=== PATIENT | male | born 1950 | race American Indian/Alaskan Native ===

== ENCOUNTER 2017-06-21 07:19 | Emergency (ER) | payer MEDICARE, MEDICAID ==
[2017-06-21] MEDS ORDERED: Iodixanol 320 MG/ML 100 ML BOTTLE IV ONE (07:36)
[2017-06-21] MEDS ORDERED: Labetalol 25mg/5ml Syringe IVP STA (07:40)
[2017-06-21 07:41] LABS: BASO % 0.6 % (0.0-2.0); EOS % 1.1 % (0.0-4.0); HEMATOCRIT 42.4 % (35.0-51.0); LYMPH # 0.7 K/uL (1.0-4.3); LYMPH % 18.2 % (20.0-40.0); MEAN CORPUSCULAR HEMOGLOBIN 33.4 pg (27.0-31.0); MEAN CORPUSCULAR HGB CONC 33.8 g/dL (33.0-37.0); MONO # 0.4 K/uL (0.0-0.8); MONO % 9.1 % (0.0-10.0); NRBC % 0.1 % (0.0-2.0); RED CELL DISTRIBUTION WIDTH 12.6 % (11.5-14.5); WHITE BLOOD COUNT 4.1 K/uL (4.8-10.8)
[2017-06-21 07:47] LABS: ALB/GLOB RATIO 1.3 (1.0-2.1); ALKALINE PHOSPHATASE 112 U/L (38-126); ALT/SGPT 27 U/L (21-72); AST/SGOT 37 U/L (17-59); BILIRUBIN,TOTAL 1.2 mg/dL (0.2-1.3); BLOOD UREA NITROGEN 20 mg/dL (9-20); CALCIUM 9.1 mg/dl (8.6-10.4); CARBON DIOXIDE 23 mmol/L (22-30); CHLORIDE 103 mmol/L (98-107); CHOLESTEROL 221 mg/dL (0-199); GFR AFRICAN-AMERICAN > 60; GLUCOSE,RANDOM 374 mg/dL (75-110); POTASSIUM 4.2 mmol/L (3.6-5.2); SODIUM 134 mmol/L (132-148); TOTAL PROTEIN 7.1 g/dL (6.3-8.3)
--- NOTE | 2017-06-21 07:47 | C.PDOC ---
History Of Present Illness 66 year old male with is brought to the ED via ALS for evaluation of a wake up stroke, patient reports he went to sleep around midnight and woke up at 07:00. Patient reports he woke up and started to stumble and fall, he is currently c/o right sides weakness. Upon arrival patient presents with right sided hemiplegia , aphasia, facial droop, he was also hypertensive and hyperglycemic. Patient later denies any history of DM and HTN, but states he drinks and smokes. Code stroke was called and patient was sent up for a CT and CTA. Patient denies any prior history of CVA. Time Seen by Provider: 06/21/17 07:23 Chief Complaint (Nursing): Weakness/Neurological Deficit History Per: Patient, EMS Onset/Duration Of Symptoms: Hrs Current Symptoms Are (Timing): Still Present Activity At Onset Of Symptoms: Lying Seizure Or Post-ictal Symptoms: None Fall Associated With With Symptoms: No Severity: Mild Recent travel outside of the [place]: No Additional History Per: Patient, EMS - Symptoms Of CVA Associated Symptoms: Impaired Speech, Decreased Ability To Walk Character Of Deficits: Right: Weakness, Face: Weakness, Arm: Weakness, Leg: Weakness Recent Head Trauma: No Past Medical History Reviewed: Historical Data, Nursing Documentation, Vital Signs Vital Signs: Last Vital Signs Temp 97.7 F 06/21/17 08:25 Pulse 76 06/21/17 08:25 Resp 20 06/21/17 08:25 BP 176/74 H 06/21/17 08:25 Pulse Ox 99 06/21/17 08:37 - Medical History PMH: Diabetes, HTN Surgical History: No Surg Hx Family History: States: Unknown Family Hx - Social History Hx Alcohol Use: No Hx Substance Use: No Review Of Systems Constitutional: Positive for: Weakness Cardiovascular: Negative for: Chest Pain, Palpitations Respiratory: Negative for: Shortness of Breath Gastrointestinal: Negative for: Nausea, Vomiting, Abdominal Pain Neurological: Positive for: Weakness, Incoordination, Change in Speech. Negative for: Altered Mental Status, Headache, Dizziness Physical Exam - Physical Exam Appears: Non-toxic Skin: Normal Color, Warm, Dry Head: Normacephalic, Other (Right side facial droop) Nose: No Discharge Oral Mucosa: Moist Neck: Normal ROM, Supple Chest: Symmetrical Cardiovascular: Rhythm Regular, No Murmur Respiratory: Normal Breath Sounds, No Rales, No Rhonchi, No Wheezing Gastrointestinal/Abdominal: Soft, No Tenderness Extremity: Normal ROM (Left side), No Calf Tenderness, No Deformity, No Swelling Neurological/Psych: Oriented x3, No Normal Speech (Severe slurred speech), No Normal Motor (Right side upper extremities 4/5, right side lower 3/5), No Normal Sensation (right side ), Other (Left side motor and senstion normal) ED Course And Treatment - Laboratory Results Result Diagrams: 06/21/17 07:35 06/21/17 07:35 O2 Sat by Pulse Oximetry: 99 (On RA) Pulse Ox Interpretation: Normal NIHSS Stroke Scale - Date/Time Evaluation Performed Date Performed: 06/21/17 Time Performed: 07:25 When Was NIHSS Performed: Baseline - How Severe is the Stoke Level of Consciousness: 0=Alert LOC to Questions: 2=Neither correct LOC to commands: 0=Obeys both correctly Best Gaze: 0=Normal Visual: 0=No visual loss Facial: 2=Partial (lower face paralysis) Motor Arm - Left: 0=No drift Motor Arm - Right: 1=Drift noted before 10 sec Motor Leg - Left: 0=No drift Motor Leg - Right: 2=Falls before 5 sec Limb Ataxia: 0=Absent Sensory: 0=Normal Best Language: 1=Mild to moderate aphasia Dysarthia: 1=Mild to moderate slurring Extinction & Inattention (Neglect): 0=Normal, no object Score: 9 Severity Of Stroke: 5-15= Moderate Stroke rTPA Inclusion/Exclusion - Refusal of Treatment Patient Refused Treatment: No - Inclusion Criteria for Altepase Patient is 18 years or Older: No The Clinical Diagnosis of Ischemic Stroke That is Causing a Potentially Disabling Neurological Deficit: Yes Time of Onset is Well Established to be Less Than 270 Minute Before Treatment Would Begin: No - Exclusion Criteria for Altepase Known Bleeding Diathesis Including but Not Limited to: Platelets Below 100,000/ mm,PTT Above 40 sec After Heparin Use, Current Use of Oral Anitcoagulant With INR Greater Than 1.7 or PT Greater Than 15 secs: No Evidence of an Intracranial Hemorrhage: No Evidence of Major Acute Infarct With Signs Greater Than 1/3 MCA Territory: Yes Suspicion of Subarachnoid Hemorrhage on Pretreatment Evaluation Even if CT Head Negative For Hemorrhage: No - Warning to TPA With Conditions Following Conditions Weighed Against Anticipated Benefit: No Medical Decision Making Medical Decision Making: Impression : 66 y/o male with a wake up stroke Plan: * Blood work * CT angio head * CT head * EKG * CXR * Trandate [address] head - no ICB Contacted Dr. Sofia Pending CTA Spoke with Neuroradiology Patient for transfer to [place]. Neuro SUBASSEMBLY ASSEMBLER in the ED assisting with transfer. Disposition - Disposition Disposition Time: 08:56 Condition: CRITICAL - Clinical Impression Clinical Impression: Stroke - Scribe Statement The provider has reviewed the documentation as recorded by the Scribe Luis Bentley All medical record entries made by the Scribe were at my direction and personally dictated by me. I have reviewed the chart and agree that the record accurately reflects my personal performance of the history, physical exam, medical decision making, and the department course for this patient. I have also personally directed, reviewed, and agree with the discharge instructions and disposition.
[2017-06-21] MEDS ORDERED: Labetalol 25mg/5ml Syringe ONE (08:10)
--- NOTE | 2017-06-21 08:14 | CT ---
PROCEDURE: CT HEAD WITHOUT CONTRAST. HISTORY: Code Stroke COMPARISON: None available. TECHNIQUE: Axial computed tomography images were obtained through the head/brain without intravenous contrast. Radiation dose: Total exam DLP = 936.33 mGy-cm. This CT exam was performed using one or more of the following dose reduction techniques: Automated exposure control, adjustment of the mA and/or kV according to patient size, and/or use of iterative reconstruction technique. FINDINGS: HEMORRHAGE: No intracranial hemorrhage. BRAIN: No mass effect or edema. Cortical atrophy. 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 VENTRICLES: Unremarkable. No hydrocephalus. CALVARIUM: Unremarkable. PARANASAL SINUSES: Unremarkable as visualized. No significant inflammatory changes. MASTOID AIR CELLS: Unremarkable as visualized. No inflammatory changes. OTHER FINDINGS: None. IMPRESSION: No acute intracranial abnormalities. 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 No evidence of acute intracranial hemorrhage. Code stroke protocol: Study completed 07:45 Radiologist notified 08:07 Results conveyed verbally at 08:11 Interpretation finalized and available for review 08:12.
--- NOTE | 2017-06-21 08:46 | RAD ---
HISTORY: code stroke COMPARISON: History FINDINGS: LUNGS: No active pulmonary disease. PLEURA: No significant pleural effusion identified, no pneumothorax apparent. CARDIOVASCULAR: Normal. OSSEOUS STRUCTURES: Evidence of old healed fracture with removal of orthopedic hardware in the right humeral neck/ head. VISUALIZED UPPER ABDOMEN: Normal. OTHER FINDINGS: None. IMPRESSION: No active disease.
--- NOTE | 2017-06-21 08:50 | CT ---
PROCEDURE: CTA HEAD AND NECK WITH CONTRAST HISTORY: Stroke COMPARISON: Noncontrast head CT performed earlier the same day. TECHNIQUE: Initial noncontrast head CT was performed. Subsequently, CT angiogram of the head and neck were performed after the intravenous administration of 80 mL of Omnipaque 350. Contiguous 1.5mm thick images were obtained in the axial plane of the neck. 2-D coronal and sagittal MPR images were obtained. Imaging postprocessing was performed with 3-D images also obtained. A delayed contrast head CT was also obtained. This CT exam was performed using one or more of the following dose reduction techniques: Automated exposure control, adjustment of the mA and/or kV according to patient size, and/or use of iterative reconstruction technique. Contrast dose: 100 mL Visipaque Radiation dose: Total exam DLP = 553.38 mGy-cm. FINDINGS: HEAD: Right: The intracranial internal carotid artery, and anterior and middle cerebral arteries are widely patent. Left: There is segmental 7 mm occlusion of the proximal petrous segment of internal carotid artery. The remaining petrous segment is patent but asymmetrically narrow compared to the right. There is also asymmetric narrowing of the left intracranial internal carotid artery and middle cerebral artery and branches. The A1 segment is hypoplastic, an anatomic variant. The A2 segments are widely patent. Posterior circulation: The visualized intracranial vertebral arteries, basilar artery and posterior cerebral arteries are widely patent. There is no intracranial saccular aneurysm. There is no abnormal enhancement on the postcontrast CT. NECK: There is a three vessel aortic arch. There are atheromatous changes in the aortic arch. There is no stenosis at the origins of the great vessels at the level of the aortic arch. There is mild narrowing of both vertebral arteries at the origin. Right Carotid: On the right, the common carotid, internal carotid and external carotid arteries are widely patent. There is no hemodynamically significant stenosis in the internal carotid arteries. Left Carotid: There is complete occlusion of the extracranial internal carotid artery. On the left, the common carotid and external carotid arteries are widely patent. The vertebral arteries are widely patent. The left vertebral artery is dominant, an anatomic variant. IMPRESSION: 1. 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 2. Segmental occlusion of the proximal 7 mm of petrous segment of left intracranial internal carotid artery. 3. Asymmetric narrowing of the left distal petrous segment , cavernous carotid and supraclinoid internal carotid arteries, left middle cerebral artery and its branches. 3. No hemodynamically significant stenosis in the right internal carotid artery by NASCET criteria. 4. Patent vertebral arteries. Critical findings were discussed with Dr. Joanne Childers and Nolan Sofia on 06/21/2017 at 8:25 a.m.
[2017-06-21 09:12] VITALS: O2SAT 100
[2017-06-21 09:19] VITALS: PULSE 74; TEMP 98.1
[2017-06-21 09:27] VITALS: BP 170/76; RESP 14
--- NOTE | 2017-06-21 10:04 | CP.PCM.CON ---
History of Present Illness - History of Present Illness History of Present Illness: Mr. Freeman is a 66-year-old man with unknown past medical history, who presented with right side weakness, facial droop and difficulty with speech that he woke up with this morning. He was last normal last night. Initial NIHSS was 12. He was not a candidate for IV tPA due to being outside the 4.5 hour time window. CTA of the head/neck showed a complete occlusion of the left ICA with reconstitution in the intracranial portion, with good flow in the MCA. He was a candidate for thrombectomy and we initiated transfer to [place]. Past Patient History - Past Social History Smoking Status: Unknown If Ever Smoked - CARDIAC Hx Hypertension: Yes - ENDOCRINE/METABOLIC Hx Endocrine Disorders: Yes Hx Diabetes Mellitus Type 2: Yes - PSYCHIATRIC Hx Substance Use: No - SURGICAL HISTORY Hx Surgeries: No Meds Allergies/Adverse Reactions: Allergies Allergy/AdvReac Type Severity Reaction Status Date / Time No Known Allergies Allergy Verified 06/21/17 07:28 Physical Exam - Constitutional Appears: Confused - Head Exam Head Exam: ATRAUMATIC, NORMAL INSPECTION, NORMOCEPHALIC - Eye Exam Eye Exam: EOMI, Normal appearance, PERRL - ENT Exam ENT Exam: Mucous Membranes Moist, Normal Exam - Neck Exam Neck exam: Positive for: Normal Inspection - Respiratory Exam Respiratory Exam: Clear to Auscultation Bilateral, NORMAL BREATHING PATTERN - Cardiovascular Exam Cardiovascular Exam: REGULAR RHYTHM, +S1, +S2 - GI/Abdominal Exam GI & Abdominal Exam: Normal Bowel Sounds, Soft. 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 Left side is normal strength and sensation. Reflexes brisk on the right with downgoing plantar response. NIHSS = 10. - Psychiatric Exam Psychiatric exam: Normal Mood - Skin Skin Exam: Dry, Intact, Normal Color, Warm Results - Vital Signs Recent Vital Signs: Last Vital Signs Temp 98.1 F 06/21/17 09:18 Pulse 74 06/21/17 09:26 Resp 14 06/21/17 09:26 BP 170/76 H 06/21/17 09:26 Pulse Ox 100 06/21/17 09:26 - Labs Result Diagrams: 06/21/17 07:35 06/21/17 07:35 Labs: Laboratory Results - last 24 hr 06/21/17 06/21/17 06/21/17 07:23 07:35 07:35 WBC 4.1 L RBC 4.28 L Hgb 14.3 Hct 42.4 MCV 99.0 H MCH 33.4 H MCHC 33.8 RDW 12.6 Plt Count 175 MPV 8.0 Neut % (Auto) 71.0 Lymph % (Auto) 18.2 L [place] % (Auto) 9.1 Eos % (Auto) 1.1 Baso % (Auto) 0.6 Neut # 2.9 Lymph # 0.7 L [place] # 0.4 Eos # 0.0 Baso # 0.0 PT 11.4 INR 1.0 APTT 35 H Sodium Potassium Chloride Carbon Dioxide Anion Gap BUN Creatinine Est GFR ( Amer) Est GFR (Non-Af Amer) POC Glucose (mg/dL) 318 H Random Glucose Hemoglobin A1c Calcium Total Bilirubin AST ALT Alkaline Phosphatase Troponin I Total Protein Albumin Globulin Albumin/Globulin Ratio Triglycerides Cholesterol LDL Cholesterol Direct HDL Cholesterol Blood Type Antibody Screen 06/21/17 06/21/17 06/21/17 07:35 07:35 07:35 WBC RBC Hgb Hct MCV MCH MCHC RDW Plt Count MPV Neut % (Auto) Lymph % (Auto) [place] % (Auto) Eos % (Auto) Baso % (Auto) Neut # Lymph # [place] # Eos # Baso # PT INR APTT Sodium 134 Potassium 4.2 Chloride 103 Carbon Dioxide 23 Anion Gap 13 BUN 20 Creatinine 1.0 Est GFR ( Amer) > 60 Est GFR (Non-Af Amer) > 60 POC Glucose (mg/dL) Random Glucose 374 H Hemoglobin A1c 9.0 H Calcium 9.1 Total Bilirubin 1.2 AST 37 ALT 27 Alkaline Phosphatase 112 Troponin I 0.0420 Total Protein 7.1 Albumin 4.1 Globulin 3.0 Albumin/Globulin Ratio 1.3 Triglycerides 119 Cholesterol 221 H LDL Cholesterol Direct 157 H HDL Cholesterol 35 Blood Type B POSITIVE Antibody Screen Negative Assessment & Plan (1) Stroke Assessment and Plan: Due to complete occlusion of the left ICA. I recommend the followin. Telemetry 2. Permissive hypertension (only treat BP that is higher than 220/110 mm Hg) 3. Maintain HOB at 15 degrees 4. Fluids with NS at 100 mL/hr 5. Transfer to [place] for thrombectomy (discussed with Dr. Mccormick, accepting physician) 6. Repeat CT head at [place]. Thank you. Status: Acute Priority: High
== END 2017-06-21 09:40 | disposition short-term general hospital (02) ==
LOC: C.ER 07:19
DX: I65.22 Occlusion and stenosis of left carotid artery (principal)
CPT/HCPCS: 70450; 70496; 70498; 71010; 80053; 80061; 82948; 83036; 84484; 85025; 85610; 85730; 86850; 86900; 96374; 99285; Q9967